=== PATIENT | female | born 1935 | race Caucasian/White ===

== ENCOUNTER 2020-12-03 11:56 | Emergency (ER) | payer MEDICARE ==
[~2020-12-03 11:56] MED LIST: ELIQUIS5 MG PO; K-DUR TAB 20 M20 MEQ PO; KEFLEX CAP 500500 MG PO; MECLIZINE HCL25 MG PO; OMNICEF 300 MG300 MG PO; ULTRA-LIGHT RO1 EACH MC; ZOFRAN4 MG PO
[2020-12-03 13:37] LABS: HEMOGLOBIN 12.8 gm/dl (12.3-15.3); RED BLOOD COUNT 3.79 M/UL (4.00-5.10); WHITE BLOOD COUNT 8.8 K/UL (4.5-11.0)
[2020-12-03] MEDS ORDERED: CEFUROXIME500 MG PO (14:35)
[2020-12-03] MEDS ORDERED: ZOFRAN4 MG PO (14:35)
== END 2020-12-03 15:13 | disposition home or self-care (01) ==
LOC: ER1 11:56
PROVIDERS: Emergency Medicine
DX: N39.0 Urinary tract infection, site not specified (principal); I25.10 Atherosclerotic heart disease of native coronary artery without angina pectoris; E78.5 Hyperlipidemia, unspecified; E11.9 Type 2 diabetes mellitus without complications; Z88.5 Allergy status to narcotic agent; Z88.2 Allergy status to sulfonamides; Z88.8 Allergy status to other drugs, medicaments and biological substances
CPT/HCPCS: 80053; 81001; 85025; 87077; 87086; 87186; 96374; 96375; 99284; J0696; J2405

== ENCOUNTER 2020-12-12 20:04 | Emergency (ER) | payer MEDICARE ==
[~2020-12-12 20:04] MED LIST changes: +CEFUROXIME500 MG PO
[2020-12-12 20:30] LABS: HEMOGLOBIN 12.3 gm/dl (12.3-15.3); RED BLOOD COUNT 3.57 M/UL (4.00-5.10); WHITE BLOOD COUNT 11.1 K/UL (4.5-11.0)
[2020-12-12 21:28] LABS: BUN/CREATININE RATIO 22 (0-10)
[2020-12-12] MEDS ORDERED: ZOFRAN ODT 4 MG4 MG PO (22:54)
== END 2020-12-12 23:00 | disposition home or self-care (01) ==
LOC: ER1 20:04
PROVIDERS: Family Medicine
DX: E11.65 Type 2 diabetes mellitus with hyperglycemia (principal); J44.9 Chronic obstructive pulmonary disease, unspecified; I10 Essential (primary) hypertension; Z88.2 Allergy status to sulfonamides; Z88.8 Allergy status to other drugs, medicaments and biological substances
CPT/HCPCS: 80053; 81001; 82550; 82553; 83605; 83690; 83735; 83874; 84439; 84443; 84484; 85025; 93005; 96374; 99283; J2405

== ENCOUNTER 2021-02-17 20:56 | Emergency (ER) | payer MEDICARE ==
[~2021-02-17 20:56] MED LIST changes: +ZOFRAN ODT 4 MG4 MG PO
[2021-02-17 21:33] LABS: HEMOGLOBIN 13.2 gm/dl (12.3-15.3); RED BLOOD COUNT 3.87 M/UL (4.00-5.10); WHITE BLOOD COUNT 12.4 K/UL (4.5-11.0)
[2021-02-17 22:04] LABS: BUN/CREATININE RATIO 16 (0-10)
== END 2021-02-18 00:26 | disposition home or self-care (01) ==
LOC: ER1 20:56
PROVIDERS: Family Medicine
DX: S00.93XA Contusion of unspecified part of head, initial encounter (principal); R42 Dizziness and giddiness; E11.9 Type 2 diabetes mellitus without complications; I10 Essential (primary) hypertension; Z88.5 Allergy status to narcotic agent; Z88.2 Allergy status to sulfonamides; Z88.6 Allergy status to analgesic agent; Z79.899 Other long term (current) drug therapy; W20.8XXA Other cause of strike by thrown, projected or falling object, initial encounter; Y92.009 Unspecified place in unspecified non-institutional (private) residence as the place of occurrence of the external cause
CPT/HCPCS: 70450; 71045; 72125; 72128; 72131; 80053; 81001; 82550; 82553; 83605; 83690; 83735; 83874; 84439; 84443; 84484; 85025; 93005; 99285

== ENCOUNTER 2021-03-09 12:37 | Emergency (ER) | payer MEDICARE ==
[2021-03-09 13:14] LABS: HEMOGLOBIN 12.5 gm/dl (12.3-15.3); RED BLOOD COUNT 3.71 M/UL (4.00-5.10); WHITE BLOOD COUNT 10.3 K/UL (4.5-11.0)
[2021-03-09] MEDS ORDERED: ANTIVERT 12.512.5 MG PO (17:56)
[2021-03-09] MEDS ORDERED: OMNICEF 300 MG300 MG PO (17:56)
[2021-03-09] MEDS ORDERED: ZOFRAN ODT 4 MG4 MG PO (17:56)
== END 2021-03-09 18:15 | disposition home or self-care (01) ==
LOC: ER1 12:37
PROVIDERS: Emergency Medicine
DX: R42 Dizziness and giddiness (principal); N39.0 Urinary tract infection, site not specified; E11.65 Type 2 diabetes mellitus with hyperglycemia; I10 Essential (primary) hypertension
CPT/HCPCS: 80053; 81001; 82550; 82553; 83874; 84484; 85025; 87077; 87086; 87186; 93005; 96374; 99284; J2405; J7030

== ENCOUNTER 2021-03-31 05:38 | Emergency (ER) | payer MEDICARE ==
[~2021-03-31 05:38] MED LIST changes: +ANTIVERT 12.512.5 MG PO
[2021-03-31 06:35] LABS: RED BLOOD COUNT 3.59 M/UL (4.00-5.10); WHITE BLOOD COUNT 8.5 K/UL (4.5-11.0)
[2021-03-31] MEDS ORDERED: MECLIZINE HCL12.5 MG PO (10:00)
[2021-03-31] MEDS ORDERED: OMNICEF 300 MG300 MG PO (10:00)
== END 2021-03-31 12:00 | disposition home or self-care (01) ==
LOC: ER1 05:38
PROVIDERS: Emergency Medicine
DX: N39.0 Urinary tract infection, site not specified (principal); E78.5 Hyperlipidemia, unspecified; I25.10 Atherosclerotic heart disease of native coronary artery without angina pectoris; E11.9 Type 2 diabetes mellitus without complications; E03.9 Hypothyroidism, unspecified; Z88.2 Allergy status to sulfonamides; Z88.5 Allergy status to narcotic agent; Z88.8 Allergy status to other drugs, medicaments and biological substances
CPT/HCPCS: 70450; 71045; 80053; 81001; 82550; 82553; 83874; 84484; 85025; 93005; 96374; 99284; J0696; J2270; J2405; J7030

== ENCOUNTER 2021-04-07 14:24 | Emergency (ER) | payer MEDICARE ==
[~2021-04-07 14:24] MED LIST changes: +MECLIZINE HCL12.5 MG PO
[2021-04-07 15:00] LABS: HEMOGLOBIN 12.2 gm/dl (12.3-15.3); RED BLOOD COUNT 3.63 M/UL (4.00-5.10); WHITE BLOOD COUNT 13.8 K/UL (4.5-11.0)
[2021-04-07 15:41] LABS: BUN/CREATININE RATIO 17 (0-10)
[2021-04-07] MEDS ORDERED: ZOFRAN ODT 4 MG4 MG PO (21:48)
[2021-04-07] MEDS ORDERED: IMODIUM CAP 2 MG2 MG PO (21:48)
== END 2021-04-07 22:56 | disposition home or self-care (01) ==
LOC: ER1 14:24
PROVIDERS: Emergency Medicine
DX: A08.4 Viral intestinal infection, unspecified (principal); I10 Essential (primary) hypertension; E11.9 Type 2 diabetes mellitus without complications
CPT/HCPCS: 70450; 71045; 80053; 81001; 82550; 82553; 83690; 84484; 85025; 93005; 96374; 99284; J2405; Q9967

== ENCOUNTER 2022-03-09 19:26 | Emergency (ER) | payer MEDICARE ==
[~2022-03-09 19:26] MED LIST changes: +IMODIUM CAP 2 MG2 MG PO
[2022-03-09 20:30] LABS: HEMOGLOBIN 13.8 gm/dl (12.3-15.3); RED BLOOD COUNT 4.16 M/UL (4.00-5.10); WHITE BLOOD COUNT 9.6 K/UL (4.5-11.0)
[2022-03-09 20:57] LABS: BUN/CREATININE RATIO 20 (0-10)
[2022-03-10] MEDS ORDERED: OMNICEF 300 MG300 MG PO (00:47)
== END 2022-03-10 01:30 | disposition home or self-care (01) ==
LOC: ER1 19:26
PROVIDERS: Family Medicine
DX: F03.90 Unspecified dementia, unspecified severity, without behavioral disturbance, psychotic disturbance, mood disturbance, and anxiety (principal); N39.0 Urinary tract infection, site not specified; E11.9 Type 2 diabetes mellitus without complications; I10 Essential (primary) hypertension; Z20.822 Contact with and (suspected) exposure to COVID-19; Z88.2 Allergy status to sulfonamides; Z88.8 Allergy status to other drugs, medicaments and biological substances
CPT/HCPCS: 70450; 71045; 80053; 81001; 82009; 82550; 82553; 83605; 83735; 83880; 84439; 84443; 84484; 85025; 93005; 96374; 99285; J0696; U0002

== ENCOUNTER 2022-03-30 11:11 | Emergency (ER) | payer MEDICARE ==
[2022-03-30 12:18] LABS: HEMOGLOBIN 13.6 gm/dl (12.3-15.3); RED BLOOD COUNT 4.1 M/UL (4.00-5.10); WHITE BLOOD COUNT 11.8 K/UL (4.5-11.0)
[2022-03-30 12:48] LABS: BUN/CREATININE RATIO 19 (0-10)
== END 2022-03-30 14:30 | disposition home or self-care (01) ==
LOC: ER1 11:11
PROVIDERS: Physician Assistant
DX: S22.41XA Multiple fractures of ribs, right side, initial encounter for closed fracture (principal); I11.9 Hypertensive heart disease without heart failure; E11.9 Type 2 diabetes mellitus without complications; K21.9 Gastro-esophageal reflux disease without esophagitis; Z88.8 Allergy status to other drugs, medicaments and biological substances; Z88.5 Allergy status to narcotic agent; S10.91XA Abrasion of unspecified part of neck, initial encounter; S00.81XA Abrasion of other part of head, initial encounter; W19.XXXA Unspecified fall, initial encounter; Y92.009 Unspecified place in unspecified non-institutional (private) residence as the place of occurrence of the external cause
CPT/HCPCS: 70450; 71250; 72125; 72128; 72170; 80053; 82550; 82553; 84484; 85025; 93005; 99284

== ENCOUNTER 2022-04-03 15:08 | Emergency (ER) | payer MEDICARE ==
[2022-04-03 16:14] LABS: HEMOGLOBIN 12.6 gm/dl (12.3-15.3); RED BLOOD COUNT 3.79 M/UL (4.00-5.10); WHITE BLOOD COUNT 9.8 K/UL (4.5-11.0)
[2022-04-03 16:41] LABS: BUN/CREATININE RATIO 21 (0-10)
[2022-04-03] MEDS ORDERED: OMNICEF 300 MG300 MG PO (20:41)
== END 2022-04-03 22:15 | disposition home or self-care (01) ==
LOC: ER1 15:08
PROVIDERS: Emergency Medicine
DX: S22.41XA Multiple fractures of ribs, right side, initial encounter for closed fracture (principal); S32.029A Unspecified fracture of second lumbar vertebra, initial encounter for closed fracture; N39.0 Urinary tract infection, site not specified; I11.9 Hypertensive heart disease without heart failure; I25.2 Old myocardial infarction; E11.9 Type 2 diabetes mellitus without complications; I48.91 Unspecified atrial fibrillation; Z95.5 Presence of coronary angioplasty implant and graft; W19.XXXA Unspecified fall, initial encounter
CPT/HCPCS: 71045; 80053; 80307; 81001; 82550; 82553; 84439; 84443; 84484; 85025; 87040; 87077; 87086; 87186; 93005; 96374; 99284; J0696